=== PATIENT | female | born 1990 | race Caucasian/White ===

== ENCOUNTER 2016-03-30 10:28 | Emergency (ER) | payer OTHER ==
[2016-03-30 10:40] VITALS: BP 109/68
--- NOTE | 2016-03-30 11:28 | UC ---
Complaint Female HPI - HPI Summary HPI Summary: 2 days of increase urinary urgency, pain with urination and frequency, denies back pain and fever. - History Of Current Complaint Chief Complaint: UCGU Stated Complaint: BURNING URINATION Time Seen by Provider: 03/30/16 10:45 Hx Obtained From: Patient Hx Last Menstrual Period: 03/16/16 ?: No Onset/Duration: Sudden Onset, Lasting Days Timing: Constant Severity Initially: Mild Severity Currently: Moderate Pain Intensity: 6 Pain Scale Used: 0-10 Numeric Character: Burning Aggravating Factor(s): Urination Associated Signs And Symptoms: Positive: Negative - Risk Factors Ectopic Risk Factor: Negative - Allergies/Home Medications Allergies/Adverse Reactions: Allergies Allergy/AdvReac Type Severity Reaction Status Date / Time No Known Allergies Allergy Verified 05/16/15 08:50 Home Medications: Home Medications metFORMIN* [Glucophage*] 500 mg PO BID 03/30/16 [History Confirmed 03/30/16] PMH/Surg Hx/FS Hx/Imm Hx Previously Healthy: Yes Endocrine History Of: Reports: Diabetes, Thyroid Disease - hashimotos Cardiovascular History Of: Denies: Hypertension, Pacemaker/ICD - Surgical History Surgical History: Yes Surgery Procedure, Year, and Place: R adrenal gland removal; BONE SPUR REMOVAL RT HEEL 2011; WISDOM TEETH - Family History Known Family History: Positive: Respiratory Disease - Social History Alcohol Use: None Substance Use Type: None Smoking Status (MU): Never Smoked Tobacco Review of Systems Constitutional: Negative Skin: Negative Eyes: Negative ENT: Negative Respiratory: Negative Cardiovascular: Negative Gastrointestinal: Abdominal Pain - lower abdomen Genitourinary: Dysuria, Hematuria, Urgency Motor: Negative Neurovascular: Negative Musculoskeletal: Negative Neurological: Negative Psychological: Negative All Other Systems Reviewed And Are Negative: Yes Physical Exam Triage Information Reviewed: Yes Appearance: Well-Appearing, Well-Nourished, Pain Distress Vital Signs: Initial Vital Signs Temp 98.8 F 03/30/16 10:36 Pulse 70 03/30/16 10:36 Resp 16 03/30/16 10:36 BP 109/68 03/30/16 10:36 Pulse Ox 99 03/30/16 10:36 Vital Signs Reviewed: Yes Eye Exam: Normal Eyes: Positive: Conjunctiva Clear ENT Exam: Normal ENT: Positive: Hearing grossly normal, Pharynx normal, TMs normal Dental Exam: Normal Neck exam: Normal Neck: Positive: Supple, Nontender, No Lymphadenopathy Respiratory Exam: Normal Respiratory: Positive: Chest non-tender, Lungs clear, Normal breath sounds Cardiovascular Exam: Normal Cardiovascular: Positive: RRR, No Murmur, Pulses Normal Abdomen Description: Positive: No Organomegaly, Soft, Other: - lower abdominal tenderness, neg CVA tenderness Bowel Sounds: Positive: Present Musculoskeletal Exam: Normal Musculoskeletal: Positive: Strength Intact, ROM Intact, No Edema Neurological Exam: Normal Neurological: Positive: Alert, Muscle Tone Normal Psychological Exam: Normal Skin Exam: Normal Complaint Female Dx - Course Course Of Treatment: hx obtained, exam performed, UA positive for leuks and nitrates. treated with bactrim. educated on preventions. - Differential Dx/Diagnosis Differential Diagnosis/HQI/PQRI: Sexually Transmitted Disease, Ureteral Stone, Urinary Tract Infection Provider Diagnoses: UTI Discharge - Discharge Plan Condition: Stable Disposition: HOME Prescriptions: Sulfamethox/Trimethoprim DS* [Bactrim DS 800/160 TAB*] 1 tab PO BID #10 tab Patient Education Materials: Urinary Tract Infection in Women (ED) Referrals: Noni Moe MD [Primary Care Provider] - Additional Instructions: Take the medication as prescribed. Increase your fluid intake. Follow up with any worsening symptoms.
== END 2016-03-30 11:14 | disposition home or self-care (01) ==
LOC: UCEAST 10:28
DX: N39.0 Urinary tract infection, site not specified (principal); R31.9 Hematuria, unspecified; E11.9 Type 2 diabetes mellitus without complications; Z79.84 Long term (current) use of oral hypoglycemic drugs
CPT/HCPCS: 81002; 87077; 87086; 87186; 99212; G0463

== ENCOUNTER 2019-10-07 01:46 | Inpatient (IN) ==
[2019-10-07 04:55] LABS: Urine Benzodiazepine Screen None Detected (None Detect); Urine Cannabinoids Screen None Detected (None Detect); Urine Opiates Screen None Detected (None Detect)
[2019-10-07 06:12] LABS: Hematocrit 37 % (35-47); Hemoglobin 13.1 g/dL (12.0-16.0); Mean Corpuscular HGB Conc 35 g/dL (31-36); Mean Corpuscular Hemoglobin 32 pg (27-31); Mean Corpuscular Volume 91 fL (80-97); Mean Platelet Volume 9.3 fL (7.4-10.4); Platelet Count 176 10^3/uL (150-450); Red Blood Count 4.11 10^6 /uL (3.70-4.87); Red Cell Distribution Width 14 % (10-15); White Blood Count 9.1 10^3/uL (3.5-10.8)
[2019-10-07] MEDS ORDERED: OBEPIDURAL 250 ML EPIDURAL ONE (06:30)
[2019-10-07] MEDS ORDERED: Sodium Citrate/Citric Acid LIQ 15 ML UDC PO PRN (07:33)
[2019-10-07] MEDS ORDERED: Phenylephrine 40 mcg/mL 10mL (400mcg) SYRINGE IV PUSH PRN ×2 (07:33)
[2019-10-07] MEDS ORDERED: Lactated Ringers 1000 ml BAG 1,000 ML IV ONE (07:33)
[2019-10-07] MEDS ORDERED: Lactated Ringers 1000 ml BAG 500 ML IV PRN ×2 (07:33)
[2019-10-07] MEDS ORDERED: OBEPIDURAL 250 ML EPIDURAL SCH (08:00)
[2019-10-07] MEDS ORDERED: Lactated Ringers 1000 ml BAG 1,000 ML IV SCH ×2 (08:00→13:00)
[2019-10-07] MEDS ORDERED: Bupivacaine 0.25% SDV PF 10 ML VIAL INJ ONE (08:49)
[2019-10-07] MEDS ORDERED: Oxytocin in LR 20 UNITS/1,000 ML BAG IVPB ONE (11:57)
[2019-10-07] MEDS ORDERED: Witch Hazel PAD JAR TOPICAL PRN (12:27)
[2019-10-07] MEDS ORDERED: Dibucaine 1% OINT 28.35 GM TUBE PR PRN (12:27)
[2019-10-07] MEDS ORDERED: Oxytocin in LR 20 UNITS/1,000 ML BAG IVPB SCH (13:00)
[2019-10-07] MEDS ORDERED: Lidocaine 1% VIAL 10 MG/ML VIAL ONE (17:30)
[2019-10-08 07:12] LABS: ABS Lymphocytes 1.7 10^3/ul (1.0-4.8); ABS Monocytes 0.7 10^3/ul (0-0.8); ABS Neutrophils 6.8 10^3/ul (1.5-7.7); Eosinophil % 0.5 %; Hematocrit 34 % (35-47); Hemoglobin 11.9 g/dL (12.0-16.0); Mean Corpuscular HGB Conc 34 g/dL (31-36); Mean Corpuscular Hemoglobin 32 pg (27-31); Mean Corpuscular Volume 93 fL (80-97); Platelet Count 146 10^3/uL (150-450); Red Cell Distribution Width 14 % (10-15); White Blood Count 9.3 10^3/uL (3.5-10.8)
[2019-10-09 08:14] VITALS: BP 122/63
== END 2019-10-09 15:25 | disposition home or self-care (01) | DRG 807 ==
LOC: MCHOBOUT 01:46 → MCHOB 03:39
PROVIDERS: ADMIT Midwife; ATTEND Midwife

== ENCOUNTER 2023-11-06 04:40 | Inpatient (IN) ==
[2023-11-06] MEDS ORDERED: Lidocaine 1% VIAL 10 MG/ML 30 ML VIAL INJ PRN (06:03)
[2023-11-06] MEDS: Buffered Lidocaine 1% SYRIN 1 ml INTRADERM ONE (06:46)
[2023-11-06 06:59] LABS: ABS Eosinophils 0.1 10^3/uL (0.0-0.5); ABS Lymphocytes 1.9 10^3/uL (1.0-4.8); ABS Monocytes 0.6 10^3/uL (0.0-0.9); ABS Neutrophils 5.3 10^3/uL (1.5-7.6); Eosinophil % 0.7 %; Hematocrit 35.5 % (35-45); Hemoglobin 12.3 g/dL (11.5-14.3); Lymphocyte % 23.7 %; Mean Corpuscular Hemoglobin 31.1 pg (27-33); Mean Corpuscular Hgb Conc 34.5 g/dL (31-36); Mean Corpuscular Volume 90.1 fL (80-97); Mean Platelet Volume 9.4 fL (7.5-11.2); Platelet Count 159 10^3/uL (150-450); Red Blood Count 3.94 10^6/uL (3.63-4.92); Red Cell Distribution Width 14.1 % (12-17); White Blood Count 7.9 10^3/uL (3.8-11.8)
[2023-11-06] MEDS: Lactated Ringers 1000 ml BAG 1,000 ML IV SCH ×2 (06:59→21:23)
[2023-11-06] MEDS: Penicillin G Potassium IV 5,000,000 UNITS in NS 0.9% 100 ml BAG 100 ML IVPB ONE (07:00)
[2023-11-06 07:23] LABS: Urine Benzodiazepine Screen None Detected (None Detect); Urine Cannabinoids Screen None Detected (None Detect); Urine Opiates Screen None Detected (None Detect)
[2023-11-06 07:51] LABS: Urine Bacteria Absent /HPF (Absent); Urine Red Blood Cell Trace(0-2/hpf) /HPF (0-Trace); Urine White Blood Cell Absent /HPF (0-Trace)
[2023-11-06 07:58] LABS: Urine Color Yellow
[2023-11-06 07:59] LABS: Urine Appearance Clear; Urine Specific Gravity >= 1.030 (1.002-1.030)
[2023-11-06 08:00] LABS: Urine Ketones Negative (Negative); Urine Urobilinogen Negative (Negative)
[2023-11-06 08:01] LABS: Urine Blood Trace (Negative); Urine Protein Negative (Negative)
[2023-11-06 08:03] LABS: Urine Bilirubin Negative (Negative); Urine Glucose Negative (Negative); Urine Nitrite Negative (Negative)
[2023-11-06] MEDS: Lactated Ringers 1000 ml BAG 1,000 ML IV ONE ×2 (10:20→21:23)
[2023-11-06] MEDS: OBEPIDURAL (200 ML) 200 ML EPIDURAL ONE (11:03)
[2023-11-06] MEDS: Penicillin G Potassium IV 3,000,000 UNITS in NS 0.9% 100 ml BAG 100 ML IVPB SCH (11:12)
[2023-11-06] MEDS ORDERED: Sodium Citrate/Citric Acid LIQ 15 ML UDC PO PRN (11:46)
[2023-11-06] MEDS ORDERED: Phenylephrine 40 mcg/mL 10mL (400mcg) SYRINGE IV PUSH PRN ×2 (11:46)
[2023-11-06] MEDS: Oxytocin in LR 20,000 MILLI.UNIT/1,000 ML BAG IV SCH ×2 (12:20→21:24)
[2023-11-06] MEDS: Methylergonovine 0.2 mg AMPULE 1 ml AMP ONE (12:32)
[2023-11-06] MEDS ORDERED: Lactated Ringers 1000 ml BAG 1,000 ML IV SCH (13:00)
[2023-11-06] MEDS: Methylergonovine 0.2 mg AMPULE 1 ml AMP IM ONE (13:43)
[2023-11-06] MEDS: OBEPIDURAL (200 ML) 200 ML EPIDURAL SCH (17:12)
[2023-11-06] MEDS: Witch Hazel PAD JAR TOPICAL PRN (19:41)
[2023-11-06] MEDS: Dibucaine 1% OINT 28.35 GM TUBE PR PRN (19:41)
[2023-11-06] MEDS: Phenylephrine 40 mcg/mL 10mL (400mcg) SYRINGE ONE (21:23)
[2023-11-06] MEDS: Lidocaine 1.5% EPI 1:200,000 30 ML SDV ONE (21:23)
[2023-11-07 06:22] LABS: ABS Eosinophils 0.1 10^3/uL (0.0-0.5); ABS Monocytes 1.1 10^3/uL (0.0-0.9); ABS Neutrophils 7.7 10^3/uL (1.5-7.6); Eosinophil % 0.5 %; Hemoglobin 11.7 g/dL (11.5-14.3); Lymphocyte % 18.3 %; Mean Corpuscular Hemoglobin 30.6 pg (27-33); Mean Corpuscular Hgb Conc 33.5 g/dL (31-36); Mean Corpuscular Volume 91.4 fL (80-97); Mean Platelet Volume 9.6 fL (7.5-11.2); Platelet Count 147 10^3/uL (150-450); Red Blood Count 3.83 10^6/uL (3.63-4.92); Red Cell Distribution Width 14.1 % (12-17); White Blood Count 10.8 10^3/uL (3.8-11.8)
[2023-11-07] MEDS ORDERED: Tetan/Diph/Pertus SYR(Tdap) 0.5 ML SYR(BOOSTRIX) use SYR contains LATEX IM ONE (07:55)
[2023-11-07] MEDS ORDERED: Influenza Vaccine *TRI* 2024-25* 0.5 ML SYRINGE IM ONE (09:00)
[2023-11-08 08:29] VITALS: BP 101/66
[2023-11-08] MEDS: Influenza Vaccine *TRI* 2024-25* 0.5 ML SYRINGE IM ONE (11:01)
[2023-11-08] MEDS: Tetan/Diph/Pertus SYR(Tdap) 0.5 ML SYR(BOOSTRIX) use SYR contains LATEX IM ONE (11:05)
== END 2023-11-08 12:10 | disposition home or self-care (01) | DRG 807 ==
LOC: MCHOBOUT 04:40 → MCHOB 05:53
PROVIDERS: ATTEND Midwife